=== PATIENT | female | born 1985 | race Caucasian/White ===

== ENCOUNTER 2016-12-15 21:56 | Emergency (ER) | payer MEDICAID, OTHER ==
[2016-12-15 22:36] VITALS: BMI 26.6
[2016-12-15 22:49] LABS: URINE BILIRUBIN NEGATIVE (NEGATIVE); URINE BLOOD NEGATIVE (NEGATIVE); URINE GLUCOSE (UA) NEGATIVE (NEGATIVE); URINE LEUKOCYTE ESTERASE NEGATIVE (NEGATIVE); URINE NITRITE NEGATIVE (NEGATIVE); URINE PROTEIN NEGATIVE (NEGATIVE); URINE UROBILINOGEN NORMAL (0-1 mg/dl)
[2016-12-15 22:52] LABS: URINE APPEARANCE CLEAR; URINE COLOR YELLOW
== END 2016-12-16 01:45 | disposition home or self-care (01) ==
LOC: FBC 21:56 → ED 21:56 → FBC 22:05 → ED 22:05 → FBC 22:05 → EDSTATUS 22:16 → ED 12-16 01:45
DX: O22.43 Hemorrhoids in pregnancy, third trimester (principal); Z3A.31 31 weeks gestation of pregnancy
CPT/HCPCS: 81003; 99282 ×2; 59025; 81002; G0463